=== PATIENT | male | born 1970 | race Hispanic/Latino ===

== ENCOUNTER 2019-07-07 16:09 | Emergency (ER) | payer SELFPAY ==
[2019-07-07] MEDS ORDERED: METOPROLOL TARTRATE 1 MG/ML 5ML VIAL IV ONE (17:23)
[2019-07-07] MEDS ORDERED: CLONIDINE HCL 0.1 MG TABLET ONE (18:02)
== END 2019-07-07 19:20 ==
LOC: EDH 16:09 → EEVIPCON 16:09 → EDH 19:20
DX: I10 Essential (primary) hypertension (principal); N28.9 Disorder of kidney and ureter, unspecified
CPT/HCPCS: 36415; 70450; 71045; 80053; 80305; 81001; 82550; 83880; 84484; 85025; 85610; 85730; 93005; 96374; 99291; J3490